=== PATIENT | male | born 1995 | race Caucasian/White ===

== ENCOUNTER 2017-01-10 17:11 | Emergency (ER) | payer SELFPAY | END 2017-01-10 21:55 | disposition home or self-care (01) | LOC: FER 17:11 | DX: J03.90 Acute tonsillitis, unspecified (principal); K21.9 Gastro-esophageal reflux disease without esophagitis; F17.210 Nicotine dependence, cigarettes, uncomplicated | CPT/HCPCS: 86308; 87450; J0561; J1030 ==

== ENCOUNTER 2020-09-13 05:12 | Emergency (ER) | payer OTHER ==
[~2020-09-13 05:12] MED LIST: CLEOCIN300 MG PO; VENTOLIN HFA18 GM INH; WELLBUTRIN XL150 MG PO
[2020-09-13 06:31] LABS: AMPHETAMINES NEGATIVE (NEGATIVE); BARBITURATES NEGATIVE (NEGATIVE); BASOPHIL 0.5 % (0-2); ECSTASY (MDMA) NEGATIVE (NEGATIVE); EOSINOPHIL 0.2 % (0-5); HCT 42.8 % (42.0-52.0); HGB 15.4 g/dl (13.2-18.0); MARIJUANA (THC) POSITIVE (NEGATIVE); MCH 33.1 pg (25.0-31.0); METHADONE NEGATIVE (NEGATIVE); MONOCYTE 6.2 % (0-12); MPV 9.8 fL (6.0-9.5); NEUTROPHIL 83.8 % (41-80); NRBC 0; OPIATES NEGATIVE (NEGATIVE); OXYCODONE NEGATIVE (NEGATIVE); PLT 232 K/uL (150-400); RBC 4.65 M/uL (4.70-6.00); RDW 11.9 % (11.5-14.0); WBC 12.8 K/uL (4.0-10.5)
[2020-09-13 06:51] LABS: ALBUMIN 4.2 g/dL (3.4-5.0); BILIRUBIN - TOTAL 2.7 mg/dL (0.2-1.0); BUN/CREAT RATIO (CALC) 16.5 RATIO; CREATININE 0.79 mg/dL (0.67-1.17); FT4 (FREE T4) 1.1 ng/dL (0.76-1.46); GLOBULIN (CALCULATION) 2.9 g/dL; POTASSIUM 3.8 mmol/L (3.5-5.1); TOTAL PROTEIN 7.1 g/dL (6.4-8.2)
== END 2020-09-13 09:56 | disposition home or self-care (01) ==
LOC: FER 05:12
PROVIDERS: Emergency Medicine Emergency Medical Services
DX: R55 Syncope and collapse (principal); R07.9 Chest pain, unspecified; R00.2 Palpitations; Z87.09 Personal history of other diseases of the respiratory system; Z87.891 Personal history of nicotine dependence
CPT/HCPCS: 36415; 71046; 80053; 80305; 84439; 84443; 84484; 85025; 85379; 93005; J1885; J7030

== ENCOUNTER 2020-11-23 11:32 | Emergency (ER) | payer OTHER | END 2020-11-23 14:34 | disposition home or self-care (01) | LOC: FER 11:32 | DX: S30.22XA Contusion of scrotum and testes, initial encounter (principal); F17.290 Nicotine dependence, other tobacco product, uncomplicated; W50.0XXA Accidental hit or strike by another person, initial encounter; Y93.75 Activity, martial arts | CPT/HCPCS: 76870 ==

== ENCOUNTER 2021-10-28 21:39 | Emergency (ER) | payer OTHER ==
[2021-10-28 22:12] LABS: BASOPHIL 0.7 % (0-2); EOSINOPHIL 1.3 % (0-5); HCT 44.8 % (42.0-52.0); HGB 15.8 g/dl (13.2-18.0); LYMPHOCYTE 33.5 % (15-48); MCH 32.3 pg (25.0-31.0); MCHC 35.3 g/dL (32.0-36.0); MCV 91.6 fL (78.0-100.0); MONOCYTE 7.4 % (0-12); MPV 9.7 fL (6.0-9.5); NEUTROPHIL 56.9 % (41-80); NRBC 0; PLT 243 K/uL (150-400); RBC 4.89 M/uL (4.70-6.00); RDW 11.8 % (11.5-14.0); WBC 8.5 K/uL (4.0-10.5)
[2021-10-28 22:32] LABS: ALBUMIN 4.2 g/dL (3.4-5.0); BILIRUBIN - TOTAL 2.3 mg/dL (0.2-1.0); BUN/CREAT RATIO (CALC) 15.3 RATIO; CREATININE 0.85 mg/dL (0.67-1.17); GLOBULIN (CALCULATION) 3.1 g/dL; TOTAL PROTEIN 7.3 g/dL (6.4-8.2)
[2021-10-28 23:17] LABS: BILIRUBIN NEGATIVE (NEGATIVE); BLOOD NEGATIVE Ery/uL (NEGATIVE); CLARITY CLEAR (CLEAR); COLOR YELLOW (YELLOW); GLUCOSE (U) NORMAL (NORMAL); LEUKOCYTES NEGATIVE Leu/uL (NEGATIVE); NITRITE NEGATIVE (NEGATIVE); PROTEIN NEGATIVE (NEGATIVE); UROBILINOGEN 0.2 mg/dL (0.2-1.0); pH 6.5 (5.0-9.0)
[2021-10-28] MEDS ORDERED: NORCO 5-325 TA1 EACH PO (23:23)
[2021-10-28] MEDS ORDERED: NAPROXEN500 MG PO (23:23)
== END 2021-10-28 23:48 | disposition home or self-care (01) ==
LOC: FER 21:39
PROVIDERS: Internal Medicine
DX: S20.411A Abrasion of right back wall of thorax, initial encounter (principal); S40.212A Abrasion of left shoulder, initial encounter; M25.552 Pain in left hip; E87.6 Hypokalemia; F17.210 Nicotine dependence, cigarettes, uncomplicated; J45.909 Unspecified asthma, uncomplicated; V43.52XA Car driver injured in collision with other type car in traffic accident, initial encounter; Z28.310 Unvaccinated for COVID-19
CPT/HCPCS: 36415; 70450; 71260; 72125; 72128; 72131; 80053; 81003; 85025; J1170; J2405; Q9967